=== PATIENT | female | born 1940 | race Caucasian/White ===

== ENCOUNTER 2021-06-18 13:47 | Emergency (ER) | payer OTHER ==
[2021-06-18 14:32] VITALS: BP 129/79; PULSE 97; TEMP 98.2; BMI 24.5
[2021-06-18] MEDS ORDERED: FAMOTIDINE 20 MG TABLET PO ONE (16:55)
[2021-06-18] MEDS ORDERED: diphenhydrAMINE HCL 25 MG CAPSULE (FP) PO ONE ×2 (16:55→16:57)
[2021-06-18] MEDS ORDERED: FAMOTIDINE 20 MG TABLET ONE (16:57)
[2021-06-18] MEDS ORDERED: DEXAMETHASONE SOD PHOSPHATE 10 MG/1 ML VIAL ONE (16:57)
[2021-06-18] MEDS ORDERED: DEXAMETHASONE 4 MG TABLET (FP) PO ONE (17:00)
== END 2021-06-18 17:13 | disposition home or self-care (01) ==
LOC: JERFT 13:47
DX: R21 Rash and other nonspecific skin eruption (principal)
CPT/HCPCS: 99283-25